=== PATIENT | male | born 1965 ===

== ENCOUNTER 2021-01-20 14:53 | Emergency (ER) | payer OTHER ==
[2021-01-20] MEDS ORDERED: Ibuprofen 800 MG TAB ONE (17:42)
== END 2021-01-20 17:53 | disposition home or self-care (01) ==
LOC: ERS 14:53
DX: S39.012A Strain of muscle, fascia and tendon of lower back, initial encounter (principal); S16.1XXA Strain of muscle, fascia and tendon at neck level, initial encounter; E78.5 Hyperlipidemia, unspecified; I10 Essential (primary) hypertension; Z79.899 Other long term (current) drug therapy; V89.2XXA Person injured in unspecified motor-vehicle accident, traffic, initial encounter
CPT/HCPCS: 99283